=== PATIENT | male | born 1955 | race Caucasian/White ===

== ENCOUNTER → 2018-10-02 | Day surgery (SDC) | payer OTHER ==
[~2018-10-02] MED LIST: FENTANYL CITRATE/PF 100MCG/2 ML INJ ONE; LIDOCAINE 1% W/EPINEPHRINE 20 ML VIAL ONE; LIDOCAINE HCL 2% LOCAL INJ 5 ML SDV VIAL INJ ONE; MIDAZOLAM HCL 2 MG/2 ML VIAL ONE; ONDANSETRON HCL INJ 2MG/ML 2ML 2 MG/ML VIAL ONE; OXYMETAZOLINE HCL 0.05% NAS 1 SPRAY BTL ONE; PANTOPRAZOLE SO40 MG PO; PROPOFOL IV EMULSION 10 MG/ML 20 ML VIAL ONE; ROCURONIUM BROMIDE 10 MG/ML 5ML VIAL ONE; SEVOFLURANE INHAL SOLN 250 ML PEN BTL ONE; SUCCINYLCHOLINE 200 MG/10 ML SYR ONE; ZYRTEC10 MG PO
--- OUTSIDE RECORDS SUMMARY | 2018-10-02 09:18 | XMS REPORT ---
Author Author [facility] Address Unknown Phone Unavailable Care Team Providers Care Costume Designer Name Role Phone Mari Nolen Unavailable Unavailable Pamela Cash Unavailable Unavailable Problems This patient has no known problems. Allergies, Adverse Reactions, Alerts This patient has no known allergies or adverse reactions. Medications This patient has no known medications. Results Test Description Test Time Test Comments Text Results Atomic Results Result Comments PERIPHERAL BLOOD SMEAR FOR REVIEW 2018-05-09 09:32:00 RUN DATE: 05/09/18 [facility] LAB*Live* PAGE 1 RUN TIME: 932 Specimen Inquiry PATIENT: RUPESH MONROY ACCT: [id number] LOC: ANEUDY U: [id number] AGE/SX: 62/M ROOM: RE05/08/18REG DR: Mari Nolen MD : 1955 BED: DIS: STATUS: REG REF TLOC: SPEC : [id number] RECD: 05/09/18 STATUS: URBANO MENJIVAR NUM: [id number] DENNY: 05/08/18 DR: Mari Nolen MD ENTERED: 05/09/18 TYPE: [facility] DR: ORDERED: BLOOD SMEAR CODES: BLOOD, NOS PROCEDURES: BLOOD SMEAR (05/09/18) TISSUES: BLOOD, NOS - PERIPHERAL CLINICAL HISTORY Pre-op Diagnosis: Not stated.Post-op Diagnosis: Not stated. DIAGNOSIS Peripheral blood smear: - Mild thrombocytopenia CPT 42233 GROSS DESCRIPTION The case is received in one part labeled with the patient's name "Rupesh Monroy" and accession#[id number], accompanied by a requisition slip labeled with the patient's name and the sameaccession number. Received are two peripheral blood smears for pathology review at the request of thephysician. (ASW) MICROSCOPIC DESCRIPTION The white blood cell count is within normal limits at 5,900. The manual differential countis as follows: 62% segmented neutrophils, 2% bands, 26% lymphocytes, 5% monocytes, 3%eosinophils, 1% basophils and 1% atypical lymphocytes. The smear shows a normal number ofwhite blood cells consisting mostly of segmented neutrophils. The hemoglobin is withinnormal limits at 16.6 and the hematocrit is slightly increased at 49.5%. The MCV and MCH arewithin normal limits. The red cells appear normocytic and normochromic. No increasedschistocytes are seen. The platelet count is decreased at 136,000. The smear appears toreflect the decreased platelet count. There are a few large platelets. No platelet clumpsare identified. CONTINUED ON NEXT PAGE RUN DATE: 05/09/18 [facility]*Live* PAGE 2 RUN TIME: 932 Specimen Inquiry SPEC: [id number] PATIENT: RUPESH MONROY [id number] (Continued) Signed (signature on file) Leanne MARTIN, Leonila 05/09/18 0932 END OF REPORT Retic Count 2018-05-08 14:11:00 Blood erythrocytes count (number/volume) (test tisr=05875-2) 5.69 M/ul 4.33-5.43 Absolute reticulocyte count and percent (test alhu=IWC9965) 1.05 % 0.4-2.05 Absolute reticulocyte count (test imsv=95818-8) 0.06 M/ul 0.02-0.11 Comprehensive metabolic xfdal1622-42-96 14:08:00* Test Item Value Reference Range Comments Serum or plasma sodium measurement (moles/volume) (test btrj=6201-4) 140 mmol/L 136-145 Potassium [Moles/volume] in Serum or Plasma (test wwfy=6071-4) 4.1 mmol/L 3.5-5.1 Chloride [Moles/volume] in Serum or Plasma (test arop=8558-0) 107 mmol/L 98-107 Carbon dioxide, total [Moles/volume] in Serum or Plasma (test jusa=7341-0) 26 mmol/L 21-32 Glucose [Mass/volume] in Serum or Plasma (test mfky=9006-2) 128 mg/dL 74-106 Urea nitrogen [Mass/volume] in Serum or Plasma (test esla=1888-3) 17 mg/dL 7-18 Creatinine [Mass/volume] in Serum or Plasma (test toxe=9327-5) 1.00 mg/dL 0.55-1.3 Glomerular Filtration Rate (test code=GFR) 75 mL =/>90 FOR CHRONIC KIDNEY DISEASE: GFR STAGE DESCRIPTION=/>90 STAGE 1 NORMAL--OR-- MINIMAL KIDNEY DAMAGE WITH NORMAL GFR 60-89 STAGE 2 MILD DECREASE IN GFR 30-59 STAGE 3 MODERATE DECREASE IN GFR 15-29 STAGE 4 SEVERE DECREASE IN GFR <15 STAGE 5 KIDNEY FAILURE The Glomerular Filtration Rate (GFR) has been calculated using the IDMS-Traceable MDRD Study Equation. Aspartate aminotransferase [Enzymatic activity/volume] in Serum or Plasma by With P-5 (test pznh=60410-9) 30 U/L 15-37 Alanine aminotransferase [Enzymatic activity/volume] in Serum or Plasma by With P-5'- (test zhsd=0831-8) 54 U/L 12-78 Alkaline phosphatase [Enzymatic activity/volume] in Serum or Plasma (test bcwp=3134-5) 55 U/L 45-117 Bilirubin.total [Mass/volume] in Serum or Plasma (test sqta=0956-4) 0.7 mg/dL 0.2-1.0 Calcium [Mass/volume] in Serum or Plasma (test ugxj=88567-5) 8.9 mg/dL 8.5-10.1 Protein [Mass/volume] in Serum or Plasma (test cphc=2165-1) 7.5 g/dL 6.4-8.2 Albumin [Mass/volume] in Serum or Plasma by Bromocresol purple (BCP) dye binding meth (test adzw=64437-1) 4.1 g/dL 3.4-5.0 Globulin (test code=GLOB) 3.4 g/dL 2.3-3.5 Albumin/Globulin Ratio (test code=A/G) 1.2 1.1-1.8 Lactate dehydrogenase [Enzymatic activity/volume] in Serum or Fupfrq0987-36-79 14:08:00* Test Item Value Reference Range Comments Lactate dehydrogenase [Enzymatic activity/volume] in Serum or Plasma (test ofpi=5032-0) 190 U/L 87-241 Liver Ccfq1908-63-90 08:42:00[place] [address] RADIOLOGY SERVICES REPORT Name: RUPESH MONROY Acct Number: [id number] :1955 Age:62 Sex:M Ord Phys: Mari Nolen MD Unit Number: [id number] [facility] Dr: Status: REG REF RAD Exam Date: 05/02/18 EXAM DESCRIPTION: US - Liver Only - 05/02/2018 8:03 am CLINICAL HISTORY: Abdominal pain/ ICD D 69.9 COMPARISON: September 2017 FINDINGS: The liver has a and increased echotexture. Hepatopetal flow is present. Previously described 8 millimeter cyst is not visualized on the current exam. Hepatopetal flow is seen. The spleen measures 17 centimeters. Echotexture is normal IMPRESSION: Increased all caps hepatic echotexture consistent with fatty infiltration. Mild to moderate splenomegaly Signed By: Roberto To MD Signed AT: 05/02/18 0843 Complete blood count (CBC) with automated white blood cell (WBC) mbjqmwqdmogm0997-27-44 14:25:00* Test Item Value Reference Range Comments White blood cell count (test rqtx=BQI7333) 5.0 4.3-10.9 Blood erythrocytes count (number/volume) (test nnnt=26790-2) 5.17 M/ul 4.33-5.43 Hemoglobin measurement (test fnbo=IZQ3135) 15.5 g/dL 13.6-17.9 Blood hematocrit (volume fraction) (test issn=81268-1) 45.2 % 39.6-49.0 MCV (test nplw=01342-4) 87.4 fL 80-100 MCH (test aomd=86147-1) 29.9 pg 27.0-35.0 MCHC (test code=MCHC) 34.2 g/dL 32.0-36.0 Platelets (test code=PLT) 127 152-406 Red Cell Distribution Width (test code=RDW) 13.2 % 12.1-15.2 Blood platelet mean volume (test ebjp=88160-2) 10.7 fL 7.6-11.3 Neutrophils % (test code=LUCRECIA%) 59.7 % 41.7-73.7 Lymphocytes/leuk NFr Bld (test hhya=91194-7) 29.1 % 15.3-44.8 Monocyte percentage (test qsil=5828-2) 7.7 % 3.3-12.3 Eosinophil % (test scvp=861-3) 2.9 % 0-4.4 Basophil % (test ttsb=07014-1) 0.6 % 0-1.3 Absolute neutrophil count (test homb=398-4) 3.0 1.8-8.0 Absolute lymphocyte count (test jtld=90743-6) 1.5 0.7-4.9 Absolute monocyte count (test cutm=291-1) 0.4 0.1-1.3 Absolute Eosinophils (test code=EOA) 0.1 0-0.5 Absolute Basophils (test code=BASA) 0.0 0-0.5 Factor V Leiden Vhesqfdc7394-75-63 18:38:00* Test Item Value Reference Range Comments Factor V (Leiden) Result (test code=FACTV1) REPORT FACTOR V LEIDEN (R506Q) MUTATION NOT DETECTED Specimen sent to Reference [facility]. Results to follow. Interpretation of clotting factor V Leiden mutation detection (test vkgb=GIS4415) REPORT This individual is negative (normal) for the Factor V Leiden (R506Q) mutation in the Factor V gene. Increased risk of thrombophilia can be caused by a variety of genetic and non-genetic factors not screened for by this assay. Specimen sent to [facility]. Results to follow. Factor V (Leiden) Reviewer (test code=FACTV3) REPORT Trupti Dc, Ph.D.,[facility], Director, Molecular Genetics SUPPLEMENTAL INFORMATION The Factor V Leiden (R506Q) mutation [NM_000130.2:c. 1601G>A (p.R534Q)] in the Factor V gene is one of the most common causes of inherited thrombophilia. This mutation causes resistance to degradation of activated Factor V protein by activated Protein C (APC). The Factor V Leiden (R506Q) mutation is detected by amplification of the selected region of Factor V gene by polymerase chain reaction (PCR) and fluorescent probe hybridization to the targeted region, followed by melting curve analysis with a real time PCR system. Although rare, false positive or false negative results may occur. All results should be interpreted in context of clinical findings, relevant history, and other laboratory data. Health care providers, please contact your local [employer] genetic counselor or call [employer] ([phone]) for assistance with interpretation of these results. This test was developed and its analytical performance characteristics have been determined by [facility] [employer] [facility], [place], [place]. It has not been cleared or approved by the U.S. Food and Drug Administration. This assay has been validated pursuant to the CLIA regulations and is used for clinical purposes. Specimen sent to [facility]. Results to follow. MIXING STUDIES B2 GLYCOPROTIEN-1AB PANEL LUPUS ANTICOAGULANT ANTIPHOSPHOLIPID AB PANELPROTHROMBIN GENE ANALYSIS (F2)2017-02-20 18:38:00* Test Item Value Reference Range Comments Prothrombin Z83335M mutation (test bdws=78040-8) REPORT THE T39823L MUTATION NOT DETECTED Specimen sent to [facility]. Results to follow. Interpretation of coagulation factor II gene I01579R mutation detection (test fmcm=UOP8220) REPORT This individual is negative (normal) for the C57957G mutation in the Prothrombin/Factor II gene. Increased risk of thrombophilia can be caused by a variety of genetic and non-genetic factors not screened for by this assay. Specimen sent to [facility]. Results to follow. PGA REVIEWER (test code=PGAREV) REPORT Trupti Dc, Ph.D.,[facility], Director, Molecular Genetics SUPPLEMENTAL INFORMATION The Z33091M mutation [MN312207.1:g.99027M>A (c.*97G>A)] in the Prothrombin/Factor II gene is the second most common inherited risk factor for thrombosis occurring in approximately 2% of Caucasians. Presence of the mutation is associated with an elevation of prothrombin levels to about 30% above normal in heterozygotes and to 70% above normal in homozygotes. The I72225A mutation is detected by amplification of the selected region of Factor II gene by polymerase chain reaction (PCR) and fluorescent probe hybridization to the targeted region, followed by melting curve analysis with a real time PCR system. Although rare, false positive or false negative results may occur. All results should be interpreted in context of clinical findings, relevant history, and other laboratory data. Health care providers, please contact your local [employer] genetic counselor or call [employer] ([phone]) for assistance with interpretation of these results. This test was developed and its analytical performance characteristics have been determined by [employer] [facility], [place], [place]. It has not been cleared or approved by the U.S. Food and Drug Administration. This assay has been validated pursuant to the CLIA regulations and is used for clinical purposes. Specimen sent to [facility]. Results to follow. MIXING STUDIES B2 GLYCOPROTIEN-1AB PANEL LUPUS ANTICOAGULANT ANTIPHOSPHOLIPID AB PANELMiscellaneous Test Fyw7325-96-17 18:38:00* Test Item Value Reference Range Comments Miscellaneous Test Lab (test code=MISC) SENT MIXING STUDIES NOT SENT, COAG. RESULTS ARE NORMAL, TRANSMITTED TO DR BAEZ'S OFFICE/TBB Specimen sent to [facility]. Results to follow. MIXING STUDIES B2 GLYCOPROTIEN-1AB PANEL LUPUS ANTICOAGULANT ANTIPHOSPHOLIPID AB PANELAnti-Double Strand DNA Ujhgiqo2520-01-12 18:38:00* Test Item Value Reference Range Comments Anti-Double Strand DNA Antibod (test code=ANTI-DNA) 1 <=4 Value Interpretation <or=4 IU/mL: Negative 5 - 9 IU/mL: Indeterminate >or=10 IU/mL: Positive MIXING STUDIES B2 GLYCOPROTIEN-1AB PANEL LUPUS ANTICOAGULANT ANTIPHOSPHOLIPID AB PANELSerum rheumatoid factor xhofotppy6842-93-00 11:36:00 Negative^Negative^SCT^NEGProthrombin time (PT) with international normalized ratio (INR)2017-02-16 11:00:00* Test Item Value Reference Range Comments PT Prothrombin Time (test code=PROTIME) 11.1 s 9.5-12.5 INR in Blood by Coagulation assay (test nika=63701-0) 0.94 Monitor pts using INR value (not prothrombin time) INR Coumadin Therapy: Low Range (prophylaxis) 2.0-3.0 High Range (high risk of clot formation) 2.5-3.5 PTT, Activated Partial Cpeggu5090-55-53 11:00:00* Test Item Value Reference Range Comments PTT, Activated Partial Thromb (test code=PTT) 28.4 s 24.3-36.9 PERIPHERAL BLOOD SMEAR FOR RURUCG3240-02-76 10:47:00 RUN DATE: 02/16/17 [facility] LAB*Praveena weiss* PAGE 1 RUN TIME: 1047 Specimen Inqu ramirez PATIENT: RUPESH MONROY ACC T: [id number] LOC: RAD U: [id number] AGE/SX: 61/M ROOM: RE02/15/17REG DR: Gomez Nolen MD : 1955 BED: DIS: STATUS: REG REF TLOC: SP EC : [id number] RECD: 02/16/17 STATUS: URBANO MENJIVAR NUM: [id number] DENNY: 02/15/17 DR: Mari Nolen MD ENTERED: 02/16/17 SP TYPE: BS OTHR DR: Pamela Cash MD ORDERED: BLOOD SMEAR CODES: BLOOD, NOS COPIES TO: Mari Nolen MD [address] [place] [address] Pamela Venegas MD [address] [address] [email or web address] PROCEDURES: BLOOD SMEAR (02/16/17) TISSUES: BLOOD, NOS - PERIPHERAL SMEAR CLINICAL HISTORY Pre-op Diagnosis: Not stated.Post-op Diagnosis: Not stated. DIAGNOSIS Peripheral blood smear: - Mild thrombocytopenia CPT 40143 GROSS DESCRIPTION The case is received in one part labeled with the patient's name "Rupesh Monroy" and a ccession#[id number], accompanied by a requisition slip labeled with the patient's name and the sameaccession number. Received is a peripheral blood smear for path ology review at the request of the physician.(ASW) MICROSCOPIC DESCRIPTION T he white blood cell count is within normal limits at 4,600. The manual different ial countis as follows: 63% segmented neutrophils, 1% bands, 22% lymphocytes, 5 % monocytes, 5%eosinophils, 2% basophils and 2% atypical lymphocytes. The smear shows a normal number ofwhite blood cells consisting mostly of segmented neutrop hils. There are a few reactive CONTINUED ON NE XT PAGE RUN DATE: 02/16/17 [facility]*Live* PAGE 2 RUN TIME: 1047 Sp ecimen Inquiry SPEC: [id number] PATIENT: RUPESH KHAN [id number] (Continued) MICROSC OPIC DESCRIPTION (Continued) lymphocytes. No blasts are identified. The he moglobin and hematocrit are within normallimits at 15.7 and 47.3%, respectively. The MCV and MCH are within normal limits. The redcells appear normocytic and no rmochromic. No increased schistocytes are seen. The plateletcount is mildly decr eased at 120,000. The smear appears to reflect the platelet count. A fewlarge pl atelets are seen. Rare platelet clumps are identified. Signed (signature on file) Leonila Perdomo MD 02/16/17 1046 END OF REPORT VIOLETTE RBC Wc8282-43-29 20:29:00* Test Item Value Reference Range Comments VIOLETTE IgG-Sp Reag RBC-Imp (test lgfv=4574-7) NEGATIVE Liver OnlyCHI [place] [address] [facility] REPORT Name: RUPESH MONROY Acct Number: [id number] :1955 Age:62 Sex:M Ord Phys: Mari Nolen MD Unit Number: [id number] [facility] Dr: Status: REG REF RAD Exam Date: 09/20/17 EXAM DESCRIPTION: US - Liver Only - 09/20/2017 8:23 am CLINICAL HISTORY: Thrombocytopenia COMPARISON: February 2017 FINDINGS: The liver has a normal echotexture. Hepatopetal flow is seen. An 8 millimeter cyst is present within the liver. The biliary tree is normal caliber The spleen measures 16 centimeters. IMPRESSION: 8 millimeter hepatic cyst Mild to moderate splenomegaly Signed By: Roberto To MD Signed AT: 09/20/17 0927
--- NOTE | 2018-10-02 10:42 | Pre Op History & Physical ---
DATE OF SURGERY: October 02, 2018. CHIEF COMPLAINT: Lesion in the soft palate. HISTORY: This 63-year-old male has noted a lesion in the soft palate for about five months. Lesion has been increasing in size and irritating the patient. The patient has no trauma to the area. The patient has been treated with antibiotics with no improvement. REVIEW OF SYSTEMS: Showed no recent cardiovascular, respiratory, or GI problem. PAST MEDICAL HISTORY: The patient has no significant medical problem. PAST SURGICAL HISTORY: The patient has previous appendectomy and collapsed lung repair. ALLERGIES: HE HAS NO KNOWN ALLERGY. MEDICATIONS: He is on Nexium. SOCIAL HISTORY: He is a nonsmoker, nondrinker. FAMILY HISTORY: Noncontributory. PHYSICAL EXAMINATION: VITAL SIGNS: The patient's vital signs were within normal limits. EARS: Showed normal tympanic membranes bilaterally NASAL: Showed no obvious abnormality. OROPHARYNX AND ORAL CAVITY: Showed a lesion in the midline of the hard palate in the anterior portion just behind the incisor. The lesion is about 0.3 cm. No other abnormality was noted. NECK: Showed no lymph node or thyroid palpable. CHEST: Showed good air entry bilaterally. CARDIOVASCULAR: Showed S1 and S2. No murmur noted. Mr. Monroy has lesion in the hard palate, which has been resistant to conservative therapy. The suggested treatment is excision of lesion with appropriate closure and other necessary procedure. Complication of procedure includes, but not limited to bleeding, infection, wound breakdown, poor cosmetic result, persistent recurrence of problem, oroantral fistula, nasal regurgitation of food, pyogenic granuloma formation. The alternative will be continued observation, excision of lesion in the office setting. The patient has elected to undergo surgical procedure. MD TAD Gordon/FORTINOL /[id number]
[2018-10-02 12:10] VITALS: BP 113/70
--- NOTE | 2018-10-03 13:44 | Operative Report ---
DATE OF PROCEDURE: 10/02/2018 SURGEON: Anthony Dickey MD CHIEF COMPLAINT: Lesion in the hard palate. POSTOPERATIVE DIAGNOSIS: Lesion in the hard palate. OPERATIVE PROCEDURE: Excision of hard palate lesion, 0.5 x 1 cm with appropriate closure, direct laryngoscopy, rigid esophagoscopy, rigid bronchoscopy. ANESTHESIA: General by [facility]esthesiology [facility]. INDICATIONS: This 63-year-old male was noted to have a lesion in the midline of the hard palate about 0.3 cm in size. The lesion has been irritating. The patient has no trauma to that region. The patient does wear dentures. He has been treated with antibiotics and antibiotic ointment to the area with no improvement. The patient because of the irritation wants the lesion to be removed. DESCRIPTION OF PROCEDURE: The patient was taken to the operating room, put under general anesthesia, endotracheally intubated. The McIvor mouth gag was inserted. The lesion came into view. It was about a centimeter posterior to the midline of the incisor in the hard palate. The area was injected with 1% Xylocaine with 1:100,000 epinephrine for hemostasis. The area was excised and sent for permanent section. Closure of the area was undertaken. Medial and lateral base mucosal flap was elevated with some difficulty because of the hard palate. This was advanced and closed on itself after hemostasis with the suction cautery using buried 3-0 Vicryl suture in the interrupted fashion. The panendoscopy was performed. Rigid esophagoscopy was performed. Esophagoscope was passed through the cricopharyngeus muscle. The esophagus was examined. At about 25 cm from the incisors, no abnormality was noted. The esophagoscope was retrieved. The rigid bronchoscopy was performed. A size #4 bronchoscope with Duff wire was used. The bronchoscope was passed endotracheal tube. Endotracheal tube cuff was deflated. The trachea was examined down to the julia. No abnormality was noted. Bronchoscope was retrieved. Endotracheal tube cuff was reinflated. The direct laryngoscopy was performed. The George laryngoscope was used. Oropharynx and oral cavity were examined. No abnormality was noted. The piriform sinus was examined on either side. No abnormality was noted. The larynx was examined. Both the true and false vocal folds were examined. No abnormality was noted. The patient tolerated the above procedure well with minimal blood loss. He was able to be transferred to recovery room in stable condition. MD TAD Gordon/ИРИНА /[id number]
== END | disposition home or self-care (01) ==
LOC: OR 09:16
PROVIDERS: ATTEND Otolaryngology Otolaryngology/Facial Plastic Surgery
DX: K13.79 Other lesions of oral mucosa (principal); R07.0 Pain in throat
CPT/HCPCS: 31525; 40818; 42107; 88304; 93005; J2250; 88305; J2001; J2405